=== PATIENT | female | born 1935 ===

== ENCOUNTER 2016-11-08 06:56 | Inpatient (IN) | payer OTHER ==
[2016-11-08 06:56] VITALS: BMI 24.7
[2016-11-08] MEDS ORDERED: Albuterol-Ipratrop 3 mg / 0.5 (3 ml) UD INH STA ×4 (07:21→10:38)
--- NOTE | 2016-11-08 07:23 | ED PDOC ---
HPI: SOB/CHF/COPD Time Seen by Provider: 11/08/16 07:06 Chief Complaint (Nursing): Shortness Of Breath History Per: Patient History/Exam Limitations: no limitations Onset/Duration Of Symptoms: Days (10) Current Symptoms Are (Timing): Still Present Exacerbating Factor(s): Coughing Current Respiratory Medications: Albuterol, Prednisone Severity: Moderate Associated Symptoms: Chest Pain (with cough). denies: Fever, Chills, Productive Cough, Leg/Calf Pain, Ankle/Leg Swelling Recently: Treated By A Physician Additional History Per: Patient Additional Complaint(s): Pt co cough, SOB, wheezing for more than 1 week. Pt reports chest pain with cough. Cough is dry. Pt seen her PCP Dr Hall 1 week ago and started on steroids and antibiotics. Pt reports no improvement. Past Medical History Reviewed: Historical Data, Nursing Documentation, Vital Signs Vital Signs: Last Vital Signs Temp 98.1 F 11/10/16 07:32 Pulse 70 11/10/16 08:59 Resp 18 11/10/16 07:32 BP 133/76 11/10/16 08:59 Pulse Ox 100 11/10/16 07:32 - Medical History PMH: Anxiety, Asthma, Atrial Fibrillation, Bronchitis, COPD, Diverticulitis, Fractures (left wrist (radius)), Gastritis, HTN, Hypercholesterolemia, Pneumonia Denies: Alzheimer's Disease, Anemia, Bipolar Disorder, CAD, Cardia Arrhythmia , CHF, Crohn's Disease, Dementia, Depression, Emphysema, Gall Bladder Disease, HIV, Hyperthyroidism, Hypothyroidism, Kidney Stones, Migraine, Mitral Valve Prolapse, Multiple Sclerosis, Osteoporosis, Pancreatitis, Paranoia, Parkinson's Disease, Peripheral Edema, Post Traumatic Stress Disorder, Pulmonary Embolism, Chronic Kidney Disease, Rheumatoid Arthritis, Schizophrenia, Seizures, Sickle Cell Disease, Sexually Transmitted Disease, Sleep Apnea, TIA - Surgical History Surgical History: Cholecystectomy, Denies: Appendectomy, CABG, Carotid Endarterectomy, Coronary Stent, Pacemaker , Tonsillectomy - Family History Family History: States: No Known Family Hx, Hypertension - Immunization History Hx Tetanus Toxoid Vaccination: No Hx Influenza Vaccination: No Hx Pneumococcal Vaccination: No - Home Medications Home Medications: Ambulatory Orders Medication Instructions Recorded ALPRAZolam [Xanax] 1 mg PO BID 11/08/16 Albuterol Sulfate [Proair Hfa] 1 puff IH Q6H PRN 11/08/16 Albuterol/Ipratropium [Duoneb 3 3 ml IH QID 11/08/16 mg/0.5 mg (3 ml) UD] Atorvastatin [Lipitor] 10 mg PO DAILY 11/08/16 Cromolyn Sodium 1 drop EACHEYE BID 11/08/16 Docusate [Colace] 100 mg PO DAILY PRN 11/08/16 Formoterol Fumarate [Perforomist] 2 ml IH BID 11/08/16 Methylprednisolone [Medrol Dose 4 mg PO ASDIR 11/08/16 Pack (21 tabs)] Montelukast [Singulair] 10 mg PO DAILY 11/08/16 Pantoprazole Sodium [Protonix] 40 mg PO DAILY 11/08/16 Zolpidem [Ambien] 10 mg PO HS 11/08/16 amLODIPine [Norvasc] 5 mg PO DAILY 11/08/16 Ferrous Sulfate [Feosol] 325 mg PO BID #1 tab 11/10/16 Pantoprazole [Protonix EC Tab] 40 mg PO DAILY #30 ect 11/10/16 levoFLOXacin [Levaquin] 500 mg PO DAILY #7 tab 11/10/16 - Allergies Allergies/Adverse Reactions: Allergies Allergy/AdvReac Type Severity Reaction Status Date / Time adhesive tape Allergy ITCHING Verified 11/09/16 19:04 aspirin Allergy ITCHING Verified 11/08/16 08:50 Wells Criteria for PE - Wells Criteria for Pulmonary Embolism Clinical Signs and Symptoms of DVT: No P.E is #1 Diagnosis, or Equally Likely: No Heart Rate >100: No Immobilization at least 3 days;Surgery previous 4 weeks: No Previous, objectively diagnosed PE or DVT: No Hemoptysis: No Malignancy w/treatment within 6 months, or palliative: No Total Score: 0 Review of Systems ROS Statement: Except As Marked, All Systems Reviewed And Found Negative Constitutional: Negative for: Fever Cardiovascular: Positive for: Chest Pain Respiratory: Positive for: Cough, Shortness of Breath Physical Exam - Reviewed Nursing Documentation Reviewed: Yes Vital Signs Reviewed: Yes - Physical Exam Appears: Positive for: Non-toxic, No Acute Distress Head Exam: Positive for: ATRAUMATIC Skin: Positive for: Warm, Dry Eye Exam: Positive for: EOMI Neck: Positive for: Painless ROM, Supple Cardiovascular/Chest: Positive for: Regular Rate, Rhythm. Negative for: Edema, Tachycardia Respiratory: Positive for: Decreased Breath Sounds, Wheezing. Negative for: Respiratory Distress Gastrointestinal/Abdominal: Positive for: Soft. Negative for: Tenderness Back: Positive for: Normal Inspection Extremity: Positive for: Normal ROM Neurologic/Psych: Positive for: Alert, Oriented - Laboratory Results Result Diagrams: 11/09/16 08:04 11/09/16 08:04 - ECG O2 Sat by Pulse Oximetry: 97 - Radiology X-Ray: Viewed By Me, Read By Radiologist X-Ray Interpretation: No Acute Disease, COPD Medical Decision Making Medical Decision Making: Impression Dyspnea and wheezing COPD exacerbtaion, r/o CHF. R/o pneumonia, r/o ACS Plan Labs EKG CXR duonebsx3 IV solumedrol 120 mg Disposition - Clinical Impression Clinical Impression: COPD with exacerbation - Patient ED Disposition Is Patient to be Admitted: Yes Discussed With : Santo Hall Doctor Will See Patient In The: Hospital Counseled Patient/Family Regarding: Studies Performed, Diagnosis - Disposition Disposition Time: 10:00 Condition: FAIR - Pt Status Changed To: Hospital Disposition Of: Inpatient - Admit Certification Admit to Inpatient:: After my assessment, the patient will require hospitalization for at least two midnights. This is because of the severity of symptoms shown, intensity of services needed, and/or the medical risk in this patient being treated as an outpatient. - POA Present On Arrival: None
[2016-11-08 08:15] LABS: BLOOD UREA NITROGEN 16 mg/dl (7-17); CALCIUM 9.5 mg/dL (8.4-10.2); CARBON DIOXIDE 25 mmol/L (22-30); CHLORIDE 108 mmol/L (98-107); GFR AFRICAN-AMERICAN > 60; GLUCOSE,RANDOM 109 mg/dL (65-105); POTASSIUM 4.8 MMOL/L (3.6-5.0); SODIUM 143 mmol/l (132-148)
[2016-11-08 08:24] LABS: BASO # 0.1 K/uL (0.0-0.2); EOS # 0.1 K/uL (0.0-0.7); EOS % 2.2 % (0.0-4.0); HEMATOCRIT 25.2 % (34.0-47.0); LYMPH # 1.7 K/uL (1.0-4.3); LYMPH % 28.9 % (20.0-40.0); MEAN CELL VOLUME 87.2 fl (81.0-99.0); MEAN CORPUSCULAR HEMOGLOBIN 28.3 pg (27.0-31.0); MEAN CORPUSCULAR HGB CONC 32.4 g/dL (33.0-37.0); MEAN PLATELET VOLUME 7.7 fl (7.2-11.7); MONO # 0.5 K/uL (0.0-0.8); MONO % 8.7 % (0.0-10.0); NEUT # 3.6 K/uL (1.8-7.0); NEUT % 59.2 % (50.0-75.0); RED CELL DISTRIBUTION WIDTH 16.9 % (11.5-14.5)
--- NOTE | 2016-11-08 10:08 | RAD ---
PROCEDURE: CHEST RADIOGRAPH, 1 VIEW HISTORY: Dyspnea and cough COMPARISON: None available. FINDINGS: LUNGS: The lungs are clear. PLEURA: No pneumothorax or pleural fluid seen. CARDIOVASCULAR: The heart is normal in size. Atherosclerotic aortic arch calcifications are present. OSSEOUS STRUCTURES: No significant abnormalities. VISUALIZED UPPER ABDOMEN: Normal. OTHER FINDINGS: None. IMPRESSION: No active pulmonary disease.
[2016-11-08 15:20] LABS: HEMATOCRIT 39.3 % (34.0-47.0); MEAN CELL VOLUME 85.5 fl (81.0-99.0); MEAN CORPUSCULAR HEMOGLOBIN 27.9 pg (27.0-31.0); MEAN CORPUSCULAR HGB CONC 32.7 g/dL (33.0-37.0); RED CELL DISTRIBUTION WIDTH 14.6 % (11.5-14.5)
[2016-11-08 15:28] LABS: WHITE BLOOD COUNT 9.2 K/uL (4.8-10.8)
[2016-11-08 15:30] LABS: IRON 34 ug/dL (37-170)
[2016-11-08 15:31] LABS: BLOOD UREA NITROGEN 20 mg/dl (7-17); CALCIUM 9.4 mg/dL (8.4-10.2); CARBON DIOXIDE 26 mmol/L (22-30); CHLORIDE 103 mmol/L (98-107); GFR AFRICAN-AMERICAN > 60; GLUCOSE,RANDOM 170 mg/dL (65-105); POTASSIUM 4.8 MMOL/L (3.6-5.0); SODIUM 141 mmol/l (132-148)
[2016-11-08] MEDS: Albuterol-Ipratrop 3 mg / 0.5 (3 ml) UD IH SCH ×2 (15:41→19:53)
[2016-11-08 16:35] LABS: THYROID STIMULATING HORMONE 0.14 mIU/ML (0.46-4.68)
[2016-11-08 17:07] VITALS: RESP 18
--- NOTE | 2016-11-08 17:31 | CARD ---
APPROVED REPORT EKG Measurement Heart [id number] <Conclusion> Normal sinus rhythm Normal ECG
[2016-11-08] MEDS: methylPREDNISolone 60 MG in Sodium Chloride 0.9% 50 ML IVPB SCH (17:44)
[2016-11-08 18:12] LABS: T4 7.73 ug/dl (5.5-11.0)
[2016-11-09] MEDS: methylPREDNISolone 60 MG in Sodium Chloride 0.9% 50 ML IVPB SCH ×2 (00:39→09:14)
[2016-11-09 08:08] LABS: BASO % 0.1 % (0.0-2.0); HEMATOCRIT 39.9 % (34.0-47.0); LYMPH # 1.4 K/uL (1.0-4.3); LYMPH % 12.3 % (20.0-40.0); MEAN CELL VOLUME 85.6 fl (81.0-99.0); MEAN CORPUSCULAR HEMOGLOBIN 27.5 pg (27.0-31.0); MEAN CORPUSCULAR HGB CONC 32.2 g/dL (33.0-37.0); MEAN PLATELET VOLUME 8.3 fl (7.2-11.7); MONO # 0.3 K/uL (0.0-0.8); MONO % 2.8 % (0.0-10.0); NEUT # 9.7 K/uL (1.8-7.0); NEUT % 84.8 % (50.0-75.0); RED CELL DISTRIBUTION WIDTH 14.5 % (11.5-14.5); WHITE BLOOD COUNT 11.4 K/uL (4.8-10.8)
[2016-11-09 08:21] LABS: BLOOD UREA NITROGEN 21 mg/dl (7-17); CALCIUM 9.4 mg/dL (8.4-10.2); CARBON DIOXIDE 24 mmol/L (22-30); CHLORIDE 106 mmol/L (98-107); GFR AFRICAN-AMERICAN > 60; GLUCOSE,RANDOM 139 mg/dL (65-105); POTASSIUM 4.9 MMOL/L (3.6-5.0); SODIUM 141 mmol/l (132-148)
[2016-11-09] MEDS: Albuterol-Ipratrop 3 mg / 0.5 (3 ml) UD IH SCH ×4 (08:40→19:00)
[2016-11-09] MEDS: Pantoprazole 40 mg EC Tab PO SCH (09:15)
[2016-11-09] MEDS: levoFLOXacin 500 mg in D5W 500 MG/100 ML BAG IVPB SCH (09:20)
--- NOTE | 2016-11-09 10:02 | CP.PCM.CON ---
History of Present Illness - History of Present Illness History of Present Illness: 72 year old female admitted because of failure of outpatient treatment of productive cough, wheeze and SOB. She had seen her primary medical doctor as an outpatient and begun on treatment with antibiotic and oral prednisone as well as inhalation therapy with albuterol and ipratropium. She was unaware of fever, but did have chills at home with chest pain that developed from her coughing. She denied hemoptysis, but did have sputum that was yellow in color. An initial chest x-ray done in the ER did not reveal any areas of consolidation or pleural effusions. There has been no previous hospitalizations for respiratory illness. Past Patient History - Infectious Disease Hx of Infectious Diseases: None - Tetanus Immunizations Tetanus Immunization: Unknown - Past Medical History & Family History Past Medical History?: Yes Past Family History: Reviewed and not pertinent - Past Social History Smoking Status: Former Smoker Chewing Tobacco Use: No Cigar Use: No Alcohol: Social Drugs: Denies - CARDIAC Hx Cardiac Disorders: Yes Hx Hypercholesterolemia: Yes Hx Hypertension: Yes - PULMONARY Hx Asthma: Yes Hx Chronic Obstructive Pulmonary Disease (COPD): Yes - NEUROLOGICAL Hx Neurological Disorder: No - HEENT Hx HEENT Problems: No - RENAL Hx Chronic Kidney Disease: No - ENDOCRINE/METABOLIC Hx Endocrine Disorders: No - HEMATOLOGICAL/ONCOLOGICAL Hx Blood Disorders: No - INTEGUMENTARY Hx Dermatological Problems: No - MUSCULOSKELETAL/RHEUMATOLOGICAL Hx Fractures: Yes (left arm Fx, s/p fall) - GASTROINTESTINAL Hx Diverticulitis: Yes Hx Gastritis: Yes Other/Comment: Lower GI bleeding. Colonoscopy revealed only benign polyps. - GENITOURINARY/GYNECOLOGICAL Hx Genitourinary Disorders: No - PSYCHIATRIC Hx Psychophysiologic Disorder: No Hx Substance Use: No - SURGICAL HISTORY Hx Cholecystectomy: Yes - ANESTHESIA Hx Anesthesia: Yes Hx Anesthesia Reactions: No Meds Allergies/Adverse Reactions: Allergies Allergy/AdvReac Type Severity Reaction Status Date / Time adhesive tape Allergy ITCHING Verified 11/09/16 19:04 aspirin Allergy ITCHING Verified 11/08/16 08:50 - Medications Medications: Current Medications Albuterol/Ipratropium (Duoneb 3 Mg/0.5 Mg (3 Ml) Ud) 3 ml IH RQID [facility] Last Admin: 11/08/16 19:53 Dose: 3 ml Alprazolam (Xanax) 1 mg PO BID [facility] Last Admin: 11/09/16 09:18 Dose: 1 mg Amlodipine Besylate (Norvasc) 5 mg PO DAILY [facility] Last Admin: 11/09/16 09:15 Dose: 5 mg Atorvastatin Calcium (Lipitor) 10 mg PO DAILY [facility] Last Admin: 11/09/16 09:15 Dose: 10 mg Ferrous Sulfate (Feosol) 325 mg PO BID [facility] Last Admin: 11/09/16 09:14 Dose: 325 mg Methylprednisolone 60 mg/ (Sodium Chloride) 50 mls @ 100 mls/hr IVPB Q8 [facility] Last Admin: 11/09/16 09:14 Dose: 100 mls/hr Levofloxacin/Dextrose (Levaquin 500mg) 500 mg in 100 mls @ 100 mls/hr IVPB DAILY [facility] Last Admin: 11/09/16 09:20 Dose: 100 mls/hr Pantoprazole Sodium (Protonix Ec Tab) 40 mg PO DAILY [facility] Last Admin: 11/09/16 09:15 Dose: 40 mg Zolpidem Tartrate (Ambien) 5 mg PO HS [facility] Last Admin: 11/08/16 22:05 Dose: 5 mg Physical Exam - Additional Findings Additional findings: Well nourished, well developed female , not in acute distress presently. Recurrent coughing noted during exam, productive of mo/yellow sputum. Pharynx is pink and moist w/o exudate. Neck is supple and trachea midline. No visible JVD, no carotid bruit. No palpable lymphadenopathy. Nares patent bilaterally w/o bleeding or exudate. No dullness on chest percussion, equal expansion. Breath sounds are diminished bilaterally with scattered E wheezes. Few lower lobe dry to medium rales and sonorous rhonchi are heard bilaterally. No bronchial breathing or egophony appreciated. Heart sounds are distant, rhythm seems regular. No dependant edema or peripheral cyanosis. No calf tenderness. Results - Vital Signs Recent Vital Signs: Last Vital Signs Temp 98.0 F 11/09/16 07:41 Pulse 73 11/09/16 09:15 Resp 18 11/09/16 07:41 BP 138/77 11/09/16 09:15 Pulse Ox 96 11/09/16 07:41 - Labs Result Diagrams: 11/09/16 08:04 11/09/16 08:04 Labs: Laboratory Results - last 24 hr 11/08/16 11/08/16 11/08/16 15:13 15:13 15:13 WBC 9.2 D RBC 4.60 Hgb 12.9 D Hct 39.3 MCV 85.5 MCH 27.9 MCHC 32.7 L RDW 14.6 H Plt Count 245 D MPV Neut % (Auto) Lymph % (Auto) Todd % (Auto) Eos % (Auto) Baso % (Auto) Neut # Lymph # Todd # Eos # Baso # Sodium 141 Potassium 4.8 Chloride 103 Carbon Dioxide 26 Anion Gap 16 BUN 20 H Creatinine 0.7 Est GFR ( Amer) > 60 Est GFR (Non-Af Amer) > 60 Random Glucose 170 H Calcium 9.4 Iron 34 L TIBC 347 % Saturation 10 L Ferritin 14.3 Vitamin B12 317 Thyroxine (T4) Total T3 TSH 3rd Generation 0.14 L 11/08/16 11/09/16 11/09/16 17:44 08:04 08:04 WBC 11.4 H RBC 4.66 Hgb 12.8 Hct 39.9 MCV 85.6 MCH 27.5 MCHC 32.2 L RDW 14.5 Plt Count 257 MPV 8.3 Neut % (Auto) 84.8 H Lymph % (Auto) 12.3 L Todd % (Auto) 2.8 Eos % (Auto) 0.0 Baso % (Auto) 0.1 Neut # 9.7 H Lymph # 1.4 Todd # 0.3 Eos # 0.0 Baso # 0.0 Sodium 141 Potassium 4.9 Chloride 106 Carbon Dioxide 24 Anion Gap 16 BUN 21 H Creatinine 0.7 Est GFR ( Amer) > 60 Est GFR (Non-Af Amer) > 60 Random Glucose 139 H Calcium 9.4 Iron TIBC % Saturation Ferritin Vitamin B12 Thyroxine (T4) 7.73 Total T3 0.965 L TSH 3rd Generation Assessment & Plan (1) COPD with exacerbation Status: Acute Priority: High (2) Iron (Fe) deficiency anemia Status: Acute - Assessment and Plan (Free Text) Plan: Agree with present regimen of empiric antibiotics as well as aerosol therapies and parenteral corticosteroids. Have begun reducing steroid dose and will continue to do so on a daily basis as tolerated. PPI for GI prophylaxis. Heme evaluating as well for iron deficiency w/o overt bleeding. CXR reported as negative for infiltrates, but there are some increased right infrahilar densities that need followup. - Date & Time Date: 11/09/16 Time: 10:01
[2016-11-09] MEDS ORDERED: Albuterol 0.083% Inhal Sol (2.5 mg/3 mL) UD INH PRN (10:04)
--- NOTE | 2016-11-09 13:38 | CP.PCM.PN ---
Subjective - Date & Time of Evaluation Date of Evaluation: 11/09/16 Time of Evaluation: 13:40 - Subjective Subjective: Patient with severe wheezing, diffuse rhonchi with poor improvement on iv steroids. She failed PO meds will admit and continue iv steroid. The duration of this condition is now for more than one week and progressive despite the aggressive rx. therapy. Objective - Vital Signs/Intake and Output Vital Signs (last 24 hours): Temp Pulse Resp BP Pulse Ox 98.0 F 73 18 138/77 96 11/09/16 07:41 11/09/16 09:15 11/09/16 07:41 11/09/16 09:15 11/09/16 07:41 - Medications Medications: Current Medications Albuterol Sulfate (Albuterol 0.083% Inhal Ivania (2.5 Mg/3 Ml) Ud) 2.5 mg INH RQ4 PRN PRN Reason: Shortness of Breath Albuterol/Ipratropium (Duoneb 3 Mg/0.5 Mg (3 Ml) Ud) 3 ml IH RQID [facility] Last Admin: 11/09/16 11:17 Dose: 3 ml Alprazolam (Xanax) 1 mg PO BID [facility] Last Admin: 11/09/16 09:18 Dose: 1 mg Amlodipine Besylate (Norvasc) 5 mg PO DAILY [facility] Last Admin: 11/09/16 09:15 Dose: 5 mg Atorvastatin Calcium (Lipitor) 10 mg PO DAILY [facility] Last Admin: 11/09/16 09:15 Dose: 10 mg Ferrous Sulfate (Feosol) 325 mg PO BID [facility] Last Admin: 11/09/16 09:14 Dose: 325 mg Levofloxacin/Dextrose (Levaquin 500mg) 500 mg in 100 mls @ 100 mls/hr IVPB DAILY [facility] Last Admin: 11/09/16 09:20 Dose: 100 mls/hr Methylprednisolone 40 mg/ (Sodium Chloride) 50.64 mls @ 100 mls/hr IVPB Q8 [facility] Iron Sucrose 200 mg/ Sodium (Chloride) 110 mls @ 0 mls/hr IVPB DAILY [facility] PRN Reason: As Directed Pantoprazole Sodium (Protonix Ec Tab) 40 mg PO DAILY [facility] Last Admin: 11/09/16 09:15 Dose: 40 mg Zolpidem Tartrate (Ambien) 5 mg PO HS [facility] Last Admin: 11/08/16 22:05 Dose: 5 mg - Labs Labs: 11/09/16 08:04 11/09/16 08:04 - Constitutional Appears: In Acute Distress, Chronically Ill - Head Exam Head Exam: ATRAUMATIC, NORMAL INSPECTION, NORMOCEPHALIC - Eye Exam Eye Exam: Normal appearance - ENT Exam ENT Exam: Mucous Membranes Moist - Neck Exam Neck Exam: Full ROM - Respiratory Exam Respiratory Exam: Prolonged Expiratory Phase, Rhonchi, Wheezes - Cardiovascular Exam Cardiovascular Exam: REGULAR RHYTHM, +S1, +S2 - GI/Abdominal Exam GI & Abdominal Exam: Normal Bowel Sounds - Extremities Exam Extremities Exam: Normal Inspection - Neurological Exam Neurological Exam: Alert, Awake, CN II-XII Intact, Oriented x3 - Psychiatric Exam Psychiatric exam: Anxious - Skin Skin Exam: Pallor Assessment and Plan (1) COPD with exacerbation Status: Acute (2) Acute bronchitis with chronic obstructive pulmonary disease (COPD) Status: Acute (3) COPD bronchitis Status: Acute (4) COPD exacerbation Status: Acute (5) DVT prophylaxis Status: Acute (6) HTN (hypertension) Status: Chronic (7) Iron (Fe) deficiency anemia Status: Acute - Assessment and Plan (Free Text) Plan: Continue present rx. Will follow with pulmonary
--- NOTE | 2016-11-09 13:40 | CP.PCM.HP ---
History of Present Illness - History of Present Illness History of Present Illness: Pt is 81 y/o female with hx of cough, SOB, wheezing for more than 1 week. Pt reports chest pain with cough. Cough is dry. Pt seen in my office 1 week ago and started on steroids and antibiotics. Pt reports no improvement, she had a worsening of the pre-existent baseline condition with severe dyspnea at rest. She presented in ER for further evaluation. In ER the initial Hb levels was around 8 this is new. Present on Admission - Present on Admission Any Indicators Present on Admission: No Review of Systems - Constitutional Constitutional: As Per HPI - EENT Eyes: As Per HPI Nose/Mouth/Throat: As Per HPI - Cardiovascular Cardiovascular: As Per HPI - Respiratory Respiratory: Cough, Dyspnea, Dyspnea on Exertion, Chest Congestion, Excessive Mucous Production, Pain with Coughing - Gastrointestinal Gastrointestinal: As Per HPI - Musculoskeletal Musculoskeletal: As Per HPI - Integumentary Integumentary: As Per HPI - Neurological Neurological: As Per HPI - Psychiatric Psychiatric: As Per HPI Past Patient History - Infectious Disease Hx of Infectious Diseases: None - Tetanus Immunizations Tetanus Immunization: Unknown - Past Medical History & Family History Past Medical History?: Yes - Past Social History Smoking Status: Former Smoker - CARDIAC Hx Cardiac Disorders: Yes Hx Hypercholesterolemia: Yes Hx Hypertension: Yes - PULMONARY Hx Respiratory Disorders: Yes Hx Asthma: Yes Hx Chronic Obstructive Pulmonary Disease (COPD): Yes - NEUROLOGICAL Hx Neurological Disorder: No - HEENT Hx HEENT Problems: No - RENAL Hx Chronic Kidney Disease: No - ENDOCRINE/METABOLIC Hx Endocrine Disorders: No - HEMATOLOGICAL/ONCOLOGICAL Hx Blood Disorders: No - INTEGUMENTARY Hx Dermatological Problems: No - MUSCULOSKELETAL/RHEUMATOLOGICAL Hx Falls: No Hx Fractures: Yes (left arm Fx, s/p fall) - GASTROINTESTINAL Hx Diverticulitis: Yes Hx Gastritis: Yes - GENITOURINARY/GYNECOLOGICAL Hx Genitourinary Disorders: No - PSYCHIATRIC Hx Psychophysiologic Disorder: No Hx Substance Use: No - SURGICAL HISTORY Hx Cholecystectomy: Yes - ANESTHESIA Hx Anesthesia: Yes Hx Anesthesia Reactions: No Meds Allergies/Adverse Reactions: Allergies Allergy/AdvReac Type Severity Reaction Status Date / Time aspirin Allergy ITCHING Verified 11/08/16 08:50 Physical Exam - Constitutional Appears: In Acute Distress, Chronically Ill - Head Exam Head Exam: ATRAUMATIC, NORMAL INSPECTION, NORMOCEPHALIC - Eye Exam Eye Exam: Normal appearance - ENT Exam ENT Exam: Mucous Membranes Moist - Neck Exam Neck exam: Positive for: Full Rom - Respiratory Exam Respiratory Exam: Prolonged Expiratory Phase, Rhonchi, Wheezes - Cardiovascular Exam Cardiovascular Exam: REGULAR RHYTHM, +S1, +S2 - GI/Abdominal Exam GI & Abdominal Exam: Normal Bowel Sounds - Extremities Exam Extremities exam: Positive for: normal inspection - Back Exam Back exam: NORMAL INSPECTION - Neurological Exam Neurological exam: Alert, CN II-XII Intact, Oriented x3 - Psychiatric Exam Psychiatric exam: Anxious - Skin Skin Exam: Pallor Results - Vital Signs Recent Vital Signs: Last Vital Signs Temp 97.7 F 11/08/16 16:27 Pulse 81 11/08/16 16:27 Resp 18 11/08/16 16:27 BP 156/80 H 11/08/16 16:27 Pulse Ox 97 11/08/16 16:27 - Labs Result Diagrams: 11/08/16 15:13 11/08/16 15:13 Labs: Laboratory Results - last 24 hr 11/08/16 11/08/16 11/08/16 15:13 15:13 15:13 WBC 9.2 D RBC 4.60 Hgb 12.9 D Hct 39.3 MCV 85.5 MCH 27.9 MCHC 32.7 L RDW 14.6 H Plt Count 245 D Sodium 141 Potassium 4.8 Chloride 103 Carbon Dioxide 26 Anion Gap 16 BUN 20 H Creatinine 0.7 Est GFR ( Amer) > 60 Est GFR (Non-Af Amer) > 60 Random Glucose 170 H Calcium 9.4 Iron 34 L TIBC 347 % Saturation 10 L Ferritin 14.3 Vitamin B12 317 TSH 3rd Generation 0.14 L Assessment & Plan (1) COPD with exacerbation Status: Acute (2) Acute bronchitis with chronic obstructive pulmonary disease (COPD) Status: Acute Priority: High (3) COPD bronchitis Status: Acute (4) COPD exacerbation Status: Acute Priority: High (5) DVT prophylaxis Status: Acute (6) HTN (hypertension) Status: Chronic (7) Iron (Fe) deficiency anemia Status: Acute - Assessment and Plan (Free Text) Plan: Start iv steroid will follow. Repeated H/H nl. Will follow with pulmonary and hemo.
--- NOTE | 2016-11-09 14:22 | CP.PCM.CON ---
History of Present Illness - History of Present Illness History of Present Illness: This is a 81 yrs old female who was admitted with c/o shortness of breath, wheezing and cough. She was seen in the Er. At the same time a cbc done showed a hgb of 8.4gms. By the time the pt came up to the floor the hgb was 12.2ms. this was repeated and was still the same. Her ferritin however was low at 14ng. She has a h/o rectal bleeding 10 yrs ago and once more 5 yrs ago but a endo and colonoscopy did not show anything. No h/o bleeding from any other site. She has HTN, hypercholesterolemia. Past Patient History - Infectious Disease Hx of Infectious Diseases: None - Tetanus Immunizations Tetanus Immunization: Unknown - Past Medical History & Family History Past Medical History?: Yes - Past Social History Smoking Status: Former Smoker - CARDIAC Hx Cardiac Disorders: Yes Hx Hypercholesterolemia: Yes Hx Hypertension: Yes - PULMONARY Hx Respiratory Disorders: Yes Hx Asthma: Yes Hx Chronic Obstructive Pulmonary Disease (COPD): Yes - NEUROLOGICAL Hx Neurological Disorder: No - HEENT Hx HEENT Problems: No - RENAL Hx Chronic Kidney Disease: No - ENDOCRINE/METABOLIC Hx Endocrine Disorders: No - HEMATOLOGICAL/ONCOLOGICAL Hx Blood Disorders: No - INTEGUMENTARY Hx Dermatological Problems: No - MUSCULOSKELETAL/RHEUMATOLOGICAL Hx Falls: No Hx Fractures: Yes (left arm Fx, s/p fall) - GASTROINTESTINAL Hx Diverticulitis: Yes Hx Gastritis: Yes - GENITOURINARY/GYNECOLOGICAL Hx Genitourinary Disorders: No - PSYCHIATRIC Hx Psychophysiologic Disorder: No Hx Substance Use: No - SURGICAL HISTORY Hx Cholecystectomy: Yes - ANESTHESIA Hx Anesthesia: Yes Hx Anesthesia Reactions: No Meds Allergies/Adverse Reactions: Allergies Allergy/AdvReac Type Severity Reaction Status Date / Time aspirin Allergy ITCHING Verified 11/08/16 08:50 - Medications Medications: Current Medications Albuterol Sulfate (Albuterol 0.083% Inhal Ivania (2.5 Mg/3 Ml) Ud) 2.5 mg INH RQ4 PRN PRN Reason: Shortness of Breath Albuterol/Ipratropium (Duoneb 3 Mg/0.5 Mg (3 Ml) Ud) 3 ml IH RQID [facility] Last Admin: 11/09/16 11:17 Dose: 3 ml Alprazolam (Xanax) 1 mg PO BID [facility] Last Admin: 11/09/16 09:18 Dose: 1 mg Amlodipine Besylate (Norvasc) 5 mg PO DAILY [facility] Last Admin: 11/09/16 09:15 Dose: 5 mg Atorvastatin Calcium (Lipitor) 10 mg PO DAILY [facility] Last Admin: 11/09/16 09:15 Dose: 10 mg Ferrous Sulfate (Feosol) 325 mg PO BID [facility] Last Admin: 11/09/16 09:14 Dose: 325 mg Levofloxacin/Dextrose (Levaquin 500mg) 500 mg in 100 mls @ 100 mls/hr IVPB DAILY [facility] Last Admin: 11/09/16 09:20 Dose: 100 mls/hr Methylprednisolone 40 mg/ (Sodium Chloride) 50.64 mls @ 100 mls/hr IVPB Q8 [facility] Sucrose 200 mg/ Sodium (Chloride) 110 mls @ 220 mls/hr IVPB DAILY [facility] Stop: 11/12/16 09:29 Pantoprazole Sodium (Protonix Ec Tab) 40 mg PO DAILY [facility] Last Admin: 11/09/16 09:15 Dose: 40 mg Zolpidem Tartrate (Ambien) 5 mg PO HS [facility] Last Admin: 11/08/16 22:05 Dose: 5 mg Physical Exam - Additional Findings Additional findings: Physical exam; Alert, well oriented in no acute distress neck; Supple, no adenopathy Chest; Clear, no rales or rhonchi. Heart;RSR, no murmur Abd' Soft, no mass. no h/s megaly Results - Vital Signs Recent Vital Signs: Last Vital Signs Temp 98.0 F 11/09/16 07:41 Pulse 73 11/09/16 09:15 Resp 18 11/09/16 07:41 BP 138/77 11/09/16 09:15 Pulse Ox 96 11/09/16 07:41 - Labs Result Diagrams: 11/09/16 08:04 11/09/16 08:04 Assessment & Plan - Assessment and Plan (Free Text) Assessment: Impression; Iron deficiency Plan: for 3 days. Plan; Will give her iv venofer - Date & Time Date: 11/09/16 Time: 14:40
[2016-11-09] MEDS: methylPREDNISolone 40 MG in Sodium Chloride 0.9% 50 ML IVPB SCH (16:45)
[2016-11-09 17:59] LABS: FOLATE 10.3 ng/mL
[2016-11-10] MEDS: methylPREDNISolone 40 MG in Sodium Chloride 0.9% 50 ML IVPB SCH ×2 (01:04→09:00)
[2016-11-10] MEDS: Albuterol-Ipratrop 3 mg / 0.5 (3 ml) UD IH SCH ×2 (07:20→11:13)
[2016-11-10 07:33] VITALS: BP 133/76; PULSE 70; TEMP 98.1
[2016-11-10] MEDS: Pantoprazole 40 mg EC Tab PO SCH (08:59)
[2016-11-10] MEDS: levoFLOXacin 500 mg in D5W 500 MG/100 ML BAG IVPB SCH (09:00)
--- NOTE | 2016-11-10 09:11 | CP.PCM.PN ---
Subjective - Date & Time of Evaluation Date of Evaluation: 11/10/16 Time of Evaluation: 09:05 - Subjective Subjective: Appears to have done well on present regimen. Has been seen by hematology, and iron infusion begun. Feels much improved from respiratory standpoint. Still having some cough with small volume of sputum being expectorated. Remains on parenteral corticosteroids and scheduled aerosol QID. No dullness on chest percussion. Breath sounds are diminished but heard equally in both lungs. Scattered sonorous rhonchi with occasional E wheeze, R>L. Rare dry rales in lower lobes, no bronchial breath sounds. Heart sounds are distant and regular. No dependant edema, no cyanosis. Doing well on current rx. Have reduced solumedrol to 30MG IVPB Q12H. Continue QID aerosol therapy. Continue empiric levofloxacin. Objective - Vital Signs/Intake and Output Vital Signs (last 24 hours): Temp Pulse Resp BP Pulse Ox 98.1 F 70 18 133/76 100 11/10/16 07:32 11/10/16 08:59 11/10/16 07:32 11/10/16 08:59 11/10/16 07:32 - Medications Medications: Current Medications Albuterol Sulfate (Albuterol 0.083% Inhal Ivania (2.5 Mg/3 Ml) Ud) 2.5 mg INH RQ4 PRN PRN Reason: Shortness of Breath Albuterol/Ipratropium (Duoneb 3 Mg/0.5 Mg (3 Ml) Ud) 3 ml IH RQID [facility] Last Admin: 11/10/16 07:20 Dose: 3 ml Alprazolam (Xanax) 1 mg PO BID [facility] Last Admin: 11/09/16 16:11 Dose: 1 mg Amlodipine Besylate (Norvasc) 5 mg PO DAILY [facility] Last Admin: 11/10/16 08:59 Dose: 5 mg Atorvastatin Calcium (Lipitor) 10 mg PO DAILY [facility] Last Admin: 11/10/16 08:59 Dose: 10 mg Cyanocobalamin (Vitamin B12 1000 Mcg/Ml Inj) 1,000 mcg IM DAILY [facility] Ferrous Sulfate (Feosol) 325 mg PO BID [facility] Last Admin: 11/10/16 08:59 Dose: 325 mg Levofloxacin/Dextrose (Levaquin 500mg) 500 mg in 100 mls @ 100 mls/hr IVPB DAILY [facility] Last Admin: 11/10/16 09:00 Dose: 100 mls/hr Iron Sucrose 200 mg/ Sodium (Chloride) 110 mls @ 220 mls/hr IVPB DAILY [facility] Stop: 11/11/16 09:29 Last Admin: 11/09/16 16:41 Dose: 220 mls/hr Methylprednisolone 30 mg/ (Sodium Chloride) 50.48 mls @ 100 mls/hr IVPB Q12 [facility] Pantoprazole Sodium (Protonix Ec Tab) 40 mg PO DAILY [facility] Last Admin: 11/10/16 08:59 Dose: 40 mg Zolpidem Tartrate (Ambien) 5 mg PO HS [facility] Last Admin: 11/09/16 23:00 Dose: 5 mg Assessment and Plan (1) COPD with exacerbation Status: Acute (2) Iron (Fe) deficiency anemia Status: Acute
--- NOTE | 2016-11-10 09:22 | CP.PCM.PN ---
Subjective - Date & Time of Evaluation Date of Evaluation: 11/10/16 Time of Evaluation: 09:21 - Subjective Subjective: Pt mtolerated the venofer without any reaction. Will give her one more dose before she goes home. Objective - Vital Signs/Intake and Output Vital Signs (last 24 hours): Temp Pulse Resp BP Pulse Ox 98.1 F 70 18 133/76 100 11/10/16 07:32 11/10/16 08:59 11/10/16 07:32 11/10/16 08:59 11/10/16 07:32 - Medications Medications: Current Medications Albuterol Sulfate (Albuterol 0.083% Inhal Ivania (2.5 Mg/3 Ml) Ud) 2.5 mg INH RQ4 PRN PRN Reason: Shortness of Breath Albuterol/Ipratropium (Duoneb 3 Mg/0.5 Mg (3 Ml) Ud) 3 ml IH RQID [facility] Last Admin: 11/10/16 07:20 Dose: 3 ml Alprazolam (Xanax) 1 mg PO BID [facility] Last Admin: 11/10/16 09:06 Dose: 1 mg Amlodipine Besylate (Norvasc) 5 mg PO DAILY [facility] Last Admin: 11/10/16 08:59 Dose: 5 mg Atorvastatin Calcium (Lipitor) 10 mg PO DAILY [facility] Last Admin: 11/10/16 08:59 Dose: 10 mg Cyanocobalamin (Vitamin B12 1000 Mcg/Ml Inj) 1,000 mcg IM DAILY [facility] Ferrous Sulfate (Feosol) 325 mg PO BID [facility] Last Admin: 11/10/16 08:59 Dose: 325 mg Levofloxacin/Dextrose (Levaquin 500mg) 500 mg in 100 mls @ 100 mls/hr IVPB DAILY [facility] Last Admin: 11/10/16 09:00 Dose: 100 mls/hr Iron Sucrose 200 mg/ Sodium (Chloride) 110 mls @ 220 mls/hr IVPB DAILY [facility] Stop: 11/11/16 09:29 Last Admin: 11/09/16 16:41 Dose: 220 mls/hr Methylprednisolone 30 mg/ (Sodium Chloride) 50.48 mls @ 100 mls/hr IVPB Q12 [facility] Pantoprazole Sodium (Protonix Ec Tab) 40 mg PO DAILY [facility] Last Admin: 11/10/16 08:59 Dose: 40 mg Zolpidem Tartrate (Ambien) 5 mg PO [facility] Last Admin: 11/09/16 23:00 Dose: 5 mg
--- NOTE | 2016-11-10 09:58 | CP.PCM.DIS ---
Provider - Provider Date of Admission: 11/09/16 13:31 Attending physician: Santo Hall MD Time Spent in preparation of Discharge (in minutes): 30 Diagnosis - Discharge Diagnosis (1) COPD with exacerbation Status: Acute Priority: High (2) Acute bronchitis with chronic obstructive pulmonary disease (COPD) Status: Acute Priority: High (3) COPD bronchitis Status: Acute (4) COPD exacerbation Status: Acute Priority: High (5) DVT prophylaxis Status: Acute (6) HTN (hypertension) Status: Chronic (7) Iron (Fe) deficiency anemia Status: Acute Hospital Course - Lab Results Lab Results: Most Recent Lab Values WBC 11.4 K/uL (4.8-10.8) H 11/09/16 08:04 RBC 4.66 Mil/uL (3.80-5.20) 11/09/16 08:04 Hgb 12.8 g/dL (12.0-16.0) 11/09/16 08:04 Hct 39.9 % (34.0-47.0) 11/09/16 08:04 MCV 85.6 fl (81.0-99.0) 11/09/16 08:04 MCH 27.5 pg (27.0-31.0) 11/09/16 08:04 MCHC 32.2 g/dL (33.0-37.0) L 11/09/16 08:04 RDW 14.5 % (11.5-14.5) 11/09/16 08:04 Plt Count 257 K/uL (130-400) 11/09/16 08:04 MPV 8.3 fl (7.2-11.7) 11/09/16 08:04 Neut % (Auto) 84.8 % (50.0-75.0) H 11/09/16 08:04 Lymph % (Auto) 12.3 % (20.0-40.0) L 11/09/16 08:04 [place] % (Auto) 2.8 % (0.0-10.0) 11/09/16 08:04 Eos % (Auto) 0.0 % (0.0-4.0) 11/09/16 08:04 Baso % (Auto) 0.1 % (0.0-2.0) 11/09/16 08:04 Neut # 9.7 K/uL (1.8-7.0) H 11/09/16 08:04 Lymph # 1.4 K/uL (1.0-4.3) 11/09/16 08:04 Bill[place] # 0.3 K/uL (0.0-0.8) 11/09/16 08:04 Eos # 0.0 K/uL (0.0-0.7) 11/09/16 08:04 Baso # 0.0 K/uL (0.0-0.2) 11/09/16 08:04 Sodium 141 mmol/l (132-148) 11/09/16 08:04 Potassium 4.9 MMOL/L (3.6-5.0) 11/09/16 08:04 Chloride 106 mmol/L (98-107) 11/09/16 08:04 Carbon Dioxide 24 mmol/L (22-30) 11/09/16 08:04 Anion Gap 16 (10-20) 11/09/16 08:04 BUN 21 mg/dl (7-17) H 11/09/16 08:04 Creatinine 0.7 mg/dL (0.7-1.2) 11/09/16 08:04 Est GFR ( Amer) > 60 11/09/16 08:04 Est GFR (Non-Af Amer) > 60 11/09/16 08:04 Random Glucose 139 mg/dL (65-105) H 11/09/16 08:04 Calcium 9.4 mg/dL (8.4-10.2) 11/09/16 08:04 Iron 34 ug/dL (37-170) L 11/08/16 15:13 TIBC 347 ug/dL (250-450) 11/08/16 15:13 % Saturation 10 % (20-55) L 11/08/16 15:13 Ferritin 14.3 ng/mL 11/08/16 15:13 Troponin I < 0.0120 ng/mL (0.00-0.120) 11/08/16 07:55 NT-Pro-B Natriuret Pep 335 pg/ml (0-900) 11/08/16 07:55 Vitamin B12 317 pg/mL (239-931) 11/08/16 15:13 Folate 10.3 ng/mL 11/08/16 15:13 Thyroxine (T4) 7.73 ug/dl (5.5-11.0) 11/08/16 17:44 Total T3 0.965 nmol/L (1.49-2.60) L 11/08/16 17:44 TSH 3rd Generation 0.14 mIU/ML (0.46-4.68) L 11/08/16 15:13 - Hospital Course Hospital Course: Pt is 81 y/o female with hx of cough, SOB, wheezing for more than 1 week. Pt reports chest pain with cough. Cough is dry. Pt seen in my office 1 week ago and started on steroids and antibiotics. Pt reports no improvement, she had a worsening of the pre-existent baseline condition with severe dyspnea at rest. She presented in ER for further evaluation. In ER the initial Hb levels was around 8 this is new. She resented with severe iron deficiency. Initially she did not respond clinically to high steroid iv meds. Today clinically well with. Will DC home on oral steroid and iron replacement. Will follow in the office in 4 days. Discharge Exam - Head Exam Head Exam: ATRAUMATIC, NORMAL INSPECTION, NORMOCEPHALIC - Eye Exam Eye Exam: EOMI, Normal appearance Pupil Exam: NORMAL ACCOMODATION, PERRL - Neck Exam Neck exam: Full Rom - Respiratory Exam Respiratory Exam: Clear to PA & Lateral - Cardiovascular Exam Cardiovascular Exam: REGULAR RHYTHM, +S1, +S2 - GI/Abdominal Exam GI & Abdominal Exam: Normal Bowel Sounds - Extremities Exam Extremities exam: normal inspection - Neurological Exam Neurological exam: Alert, CN II-XII Intact, Oriented x3, Reflexes Normal - Psychiatric Exam Psychiatric exam: Normal Affect Discharge Plan - Follow Up Plan Condition: FAIR Disposition: HOME/ ROUTINE
--- NOTE | 2016-11-10 13:04 | RAD ---
HISTORY: cough COMPARISON: Chest x-ray performed 11/08/16 TECHNIQUE: Chest PA and lateral FINDINGS: LUNGS: Biapical pleural thickening. No focal consolidation. Please note that chest x-ray has limited sensitivity for the detection of pulmonary masses. PLEURA: No significant pleural effusion identified. No definite pneumothorax . CARDIOVASCULAR: Cardiomegaly. Atherosclerotic calcifications of the aorta. OSSEOUS STRUCTURES: Osseous demineralization. Degenerative changes. VISUALIZED UPPER ABDOMEN: Unremarkable. OTHER FINDINGS: None. IMPRESSION: Cardiomegaly. Atherosclerotic calcifications of the aorta. Biapical pleural thickening.
[2016-11-10] MEDS ORDERED: methylPREDNISolone 30 MG in Sodium Chloride 0.9% 50 ML IVPB SCH (21:00)
[2016-11-10 23:04] VITALS: O2SAT 97
== END 2016-11-10 14:50 | disposition home health service (06) | DRG 192 ==
LOC: H.ER 06:56 → INTOOBSV 10:04 → H.ERHOLD 10:04 → H.MEDSURG1 14:44 → OBSVTOIN 11-09 13:31
PROVIDERS: ADMIT Internal Medicine; ATTEND Internal Medicine
PROC: 3E0F73Z Introduction of Anti-inflammatory into Respiratory Tract, Via Natural or Artificial Opening (ICD-10-PCS; principal; 2016-11-09)
DX: J44.1 Chronic obstructive pulmonary disease with (acute) exacerbation (principal); J20.9 Acute bronchitis, unspecified; J44.0 Chronic obstructive pulmonary disease with (acute) lower respiratory infection; D50.9 Iron deficiency anemia, unspecified; I48.91 Unspecified atrial fibrillation; I10 Essential (primary) hypertension; J45.909 Unspecified asthma, uncomplicated; E78.00 Pure hypercholesterolemia, unspecified; K29.70 Gastritis, unspecified, without bleeding; F41.9 Anxiety disorder, unspecified; Z88.6 Allergy status to analgesic agent; Z91.048 Other nonmedicinal substance allergy status; Z87.891 Personal history of nicotine dependence; Z87.01 Personal history of pneumonia (recurrent)